=== PATIENT | male | born 1960 | race Caucasian/White ===

== ENCOUNTER 2019-02-27 01:07 | Inpatient (IN) ==
[2019-02-27] MEDS ORDERED: LACTATED RINGERS 1,000 ML IV ONE (01:41)
[2019-02-27 02:29] LABS: Basophils # (Auto) 0.05 K/mcL (0.00-0.30); Basophils % (Auto) 0.6 % (0.0-2.0); Eosinophils # (Auto) 0.26 K/mcL (0.00-0.70); Eosinophils % (Auto) 3.3 % (0.0-7.0); Granulocytes % (Auto) 60.2 % (38.0-78.0); Hematocrit 46.2 % (40.1-51.0); Lymphocytes # (Auto) 2.16 K/mcL (1.50-4.80); Lymphocytes % (Auto) 27.4 % (15.5-49.0); Mean Cell Volume 87.3 fL (80.0-100.0); Mean Corpuscular HGB Conc 34.6 g/dL (31.0-36.0); Mean Platelet Volume 9.7 fL (7.4-10.4); Monocytes # (Auto) 0.67 K/mcL (0.10-0.90); Monocytes % (Auto) 8.5 % (1.0-12.0); Platelet Count 196 K/mcL (140-440); RBC 5.29 M/mcL (4.63-6.08); Red Cell Distribution Width 12.7 % (11.5-14.5); WBC 7.9 K/mcL (4.50-11.00)
[2019-02-27 02:52] LABS: ALT/SGPT 42 U/l (0-40); AST/SGOT 46 U/l (0-37); Albumin 4.8 gm/dL (3.2-5.2); Albumin/Globulin Ratio 2.1 (1.0-2.3); Alcohol,Blood 0.248 gm/dl (<0.010); Alkaline Phosphatase 58 U/L (39-117); Bilirubin,Total 0.3 mg/dL (0.0-1.0); Blood Urea Nitrogen 10 mg/dl (6-20); Calcium 9.4 mg/dl (8.6-10.4); Carbon Dioxide 24 mmol/L (22-30); Chloride 96 mmol/L (96-108); Globulin 2.3 gm/dL (2.2-3.7); Glomerular Filtration Rate 98; Glucose 170 mg/dL (70-105)
[2019-02-27] MEDS: HYDROmorphone 2 MG/ML VIAL IV PRN ×6 (02:52→16:00)
[2019-02-27] MEDS: ONDANSETRON 4 MG/2 ML VIAL IV PRN ×4 (02:53→19:55)
[2019-02-27 04:11] LABS: Appearance,Urine CLEAR; Bilirubin,Urine NEG (NEG); Color,Urine STRAW; Culture Indicated,Urine NO; Glucose,Urine (UA) NEGATIVE (NEG); Ketones,Urine 5/TR mg/dL (NEG); Leukocyte Esterase,Urine NEG /uL (NEG); Nitrate,Urine NEG (NEG); Protein,Urine NEG (NEG); Specific Gravity,Urine 1.009 (1.000-1.035); Urine Blood NEG mg/dL (<0.03); Urobilinogen,Urine NEG (NEG)
--- NOTE | 2019-02-27 04:46 | XRay Report ---
CLINICAL INFORMATION: fall COMPARISON: Abdomen and pelvic CT 11/07/1999.. FINDINGS: Basicervical fracture of the left femoral neck is appreciated with mild impaction. Femoral head and neck fragment are displaced only 2 to 3 mm anteriorly with respect to the trochanteric region. No other osseous abnormality. The SI and hip joints are normal with alignment without arthritic change. Moderate prostate calcification has increased modestly from a [address] IMPRESSION: Minimally impacted and displaced basicervical fracture - left femoral neck Moderate prostate calcification Interpreted and Authenticated by: Mat Calle 02/27/19
--- NOTE | 2019-02-27 04:47 | XRay Report ---
CLINICAL INFORMATION: Preop COMPARISON: 06/22/2017 TECHNIQUE: PA and Lateral views FINDINGS: The heart size, mediastinum and pulmonary vessels are unremarkable. Few small calcified granulomas seen in both lungs as before - no infiltrates. There are no effusions. The bones and soft tissues are within normal limits. IMPRESSION: No acute disease - stable since 06/22/2017. Interpreted and Authenticated by: Mat Calle 02/27/19
[2019-02-27] MEDS: LACTATED RINGERS 1,000 ML IV SCH ×2 (05:05→15:41)
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
[2019-02-27] MEDS ORDERED: IPRATROPIUM/ALBUTEROL 3 ML AMPUL.NEB NEB PRN ×2 (08:21→12:30)
[2019-02-27] MEDS ORDERED: SCOPOLAMINE 1 PATCH PATCH TOPICAL PRN (08:21)
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
[2019-02-27 09:37] LABS: Estimated Average Glucose(eAG) 157 mg/dL; Hemoglobin A1C 7.1 % HGB (4.0-6.0)
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
[2019-02-27] MEDS ORDERED: ALBUTEROL SULFATE 2.5 MG/3 ML NEBULIZER NEB PRN (10:24)
[2019-02-27] MEDS ORDERED: ceFAZolin 1 GM VIAL ONE (11:40)
[2019-02-27] MEDS ORDERED: ceFAZolin 2 GM in DEXTROSE 5% IN WATER 50 ML IV ONE (11:45)
[2019-02-27] MEDS ORDERED: ROCURONIUM 10 MG/ML ML IV ONE (11:46)
[2019-02-27] MEDS ORDERED: PROPOFOL 200 MG/20 ML VIAL IV ONE (11:46)
[2019-02-27] MEDS ORDERED: fentaNYL 100 MCG/2 ML VIAL IV ONE (11:46)
[2019-02-27] MEDS ORDERED: LIDOCAINE HCL/PF 100 MG/5 ML SYRINGE IV ONE (11:46)
[2019-02-27] MEDS ORDERED: ONDANSETRON 4 MG/2 ML VIAL ONE (11:46)
[2019-02-27] MEDS ORDERED: SUCCINYLCHOLINE 20 MG/ML ML IV ONE (11:46)
[2019-02-27] MEDS ORDERED: DEXAMETHASONE 10 MG/ML VIAL ONE (11:46)
[2019-02-27] MEDS ORDERED: MIDAZOLAM 5 MG/5 ML VIAL ONE (11:46)
[2019-02-27] MEDS ORDERED: GENTAMICIN SULFATE 800 MG/20 ML VIAL IR ONE (12:25)
[2019-02-27] MEDS ORDERED: HYDROmorphone 2 MG/ML VIAL IV PRN (12:30)
[2019-02-27] MEDS ORDERED: METHOCARBAMOL 1,000 MG/10 ML VIAL IV PRN (12:30)
[2019-02-27] MEDS ORDERED: fentaNYL 100 MCG/2 ML VIAL IV PRN (12:30)
[2019-02-27] MEDS ORDERED: KETOROLAC 30 MG/ML VIAL IV PRN (12:30)
[2019-02-27] MEDS ORDERED: MAGNESIUM SULFATE 2 GM/50 ML BAG IV ONE (12:30)
[2019-02-27] MEDS ORDERED: VANCOMYCIN 1 GM VIAL TOPICAL SCH (12:30)
[2019-02-27] MEDS ORDERED: NALOXONE HCL 0.4 MG/ML VIAL IV PRN (12:30)
[2019-02-27] MEDS ORDERED: LACTATED RINGERS 1,000 ML IV SCH (12:30)
[2019-02-27] MEDS ORDERED: diphenhydrAMINE 50 MG/ML VIAL IV PRN (12:30)
[2019-02-27] MEDS ORDERED: ePHEDrine 50 MG/ML AMPUL IV PRN (12:30)
[2019-02-27] MEDS ORDERED: FLUMAZENIL 0.1 MG/ML ML IV PRN (12:30)
[2019-02-27] MEDS ORDERED: MEPERIDINE 25 MG/ML SYRINGE IV PRN (12:30)
[2019-02-27] MEDS ORDERED: ATROPINE SULFATE 0.4 MG/ML VIAL IV PRN (12:30)
--- NOTE | 2019-02-27 12:39 | Cat Scan Report ---
CLINICAL INFORMATION: Trauma COMPARISON: None. TECHNIQUE: 625mm helical slices were obtained from the mid L4 through the subtrochanteric regions. Following reconstruction, 2.5 mm sagittal, coronal and axial reformations were processed. The exam was reviewed in bone and soft tissue windows. The exam was performed using radiation dose optimization techniques including, but not limited to, automated exposure control, adjustment of mA and/or kV according to patient size and use of iterative reconstruction technique. FINDINGS: Mildly comminuted oblique fracture of the left femoral neck is appreciated. There is mild impaction. The femoral diaphysis is displaced 5 mm superiorly and anteriorly with respect to the femoral head and neck. Mild soft tissue swelling noted. Left hip is normal in width and alignment. Soft tissues are significant for moderate prostate calcification. Bladder is normal. Visualized small and large bowel are unremarkable. There is no free fluid or free air. IMPRESSION: Obliquely, minimally angulated and displaced acute fracture of the left femoral neck. Interpreted and Authenticated by: Mat Calle 02/27/19
[2019-02-27] MEDS ORDERED: VANCOMYCIN 1 GM VIAL TOPICAL ONE (12:45)
[2019-02-27] MEDS: METOPROLOL TARTRATE 5 MG/5 ML VIAL IV PRN ×2 (13:31→13:45)
[2019-02-27] MEDS ORDERED: ACETAMINOPHEN 1,000 MG/100 ML BOTTLE IV ONE (13:36)
--- NOTE | 2019-02-27 13:36 | Brief Operative Note ---
Date of procedure: 02/27/19 Pre-op diagnosis: L hip fracture Post-op diagnosis: same Procedure: hemiarthroplasy Grafts/Implants: Yes (depuy actis) Anesthesia: GETA Complications: none Surgeon: Andrey Rajan Hand Silvering Supervisor: Franklin Simon Estimated blood loss (cc): 100 Specimens Removed/Pathology: none sent Condition: stable Disposition: PACU
[2019-02-27] MEDS ORDERED: MAGNESIUM HYDROXIDE 30 ML ORAL.SUSP PO PRN (13:37)
[2019-02-27] MEDS ORDERED: POLYETHYLENE GLYCOL 3350 17 GM PACKET PO PRN (13:37)
[2019-02-27] MEDS ORDERED: TRANEXAMIC ACID 1,000 MG/10 ML VIAL IV ONE (13:37)
[2019-02-27] MEDS ORDERED: BISACODYL 10 MG SUPP.RECT PR PRN (13:37)
[2019-02-27] MEDS ORDERED: BENZOCAINE/MENTHOL 1 LOZENGE PO PRN (13:37)
[2019-02-27] MEDS ORDERED: FLEETS ADULT ENEMA PR PRN (13:37)
[2019-02-27] MEDS ORDERED: ONDANSETRON 4 MG/2 ML VIAL IV PRN (13:37)
[2019-02-27] MEDS: 0.9 % SODIUM CHLORIDE 10 ML SYRINGE IV SCH ×2 (15:38→21:56)
[2019-02-27] MEDS: 0.9 % SODIUM CHLORIDE 1,000 ML IV SCH (16:05)
[2019-02-27] MEDS: oxyCODONE/APAP 5/325MG TABLET PO PRN ×2 (17:53→22:12)
--- NOTE | 2019-02-27 18:04 | XRay Report ---
CLINICAL INFORMATION: Post-Op Total Hip COMPARISON: Preoperative films 02/27/2019 0129 hours FINDINGS: Left hip hemiarthroplasty is anatomically aligned. No osseous abnormality. Both SI joints are normal. IMPRESSION: Left hip hemiarthroplasty in anatomic alignment. Negative Interpreted and Authenticated by: Mat Calle 02/27/19
[2019-02-27] MEDS: ceFAZolin 1 GM VIAL IV SCH (19:35)
[2019-02-27] MEDS: DOCUSATE SODIUM 100 MG CAPSULE PO SCH (21:55)
[2019-02-27] MEDS: ASPIRIN 325 MG ENTERIC COATED TABLET PO SCH (21:55)
[2019-02-27] MEDS: SENNOSIDES 1 TABLET PO SCH (21:55)
[2019-02-27] MEDS: LOSARTAN 50 MG TABLET PO SCH (21:55)
[2019-02-27] MEDS: LORazepam 1 MG TABLET PO PRN (23:10)
[2019-02-28] MEDS: 0.9 % SODIUM CHLORIDE 1,000 ML IV SCH ×3 (01:23→19:28)
[2019-02-28] MEDS: oxyCODONE/APAP 5/325MG TABLET PO PRN ×5 (03:11→18:47)
[2019-02-28] MEDS: ceFAZolin 1 GM VIAL IV SCH (03:12)
[2019-02-28] MEDS: 0.9 % SODIUM CHLORIDE 10 ML SYRINGE IV SCH ×4 (04:03→22:16)
--- NOTE | 2019-02-28 06:17 | Orthopedic Progress Note ---
Subjective Patient information: Note initiated : 02/28/19 at 6:15 am Service Date, if different from initiated Date: [] Patient: Mat Lucio 58 y/o M admitted on 02/27/19 for fall from standing position left hip pain. POD#1 s/p Left hip hemiarthroplasty with Dr. Rajan. Admits to pain in the left hip and some dizziness and nausea this AM. His pain is managed. Denies SOB, CP, V. No new complaints overnight. Chief Complaint: LEFT HIP PAIN Pertinent ROS: negative except per HPI. Objective Vital signs: Vital Signs Temp Pulse Resp BP BP Pulse Ox 02/28/19 03:15 97.8 F 96 H 12 132/88 92 02/27/19 23:05 98.6 F 90 12 141/91 93 02/27/19 18:58 97.3 F 90 12 140/83 95 02/27/19 18:00 82 02/27/19 16:00 96.8 F L 75 137/90 91 02/27/19 15:30 80 131/84 93 02/27/19 15:15 83 134/81 93 02/27/19 15:00 76 135/82 93 02/27/19 14:45 79 138/89 91 02/27/19 14:30 84 12 144/97 92 02/27/19 14:17 98.0 F 84 12 149/90 95 02/27/19 13:58 91 02/27/19 13:50 89 11 L 161/94 96 02/27/19 13:35 94 H 15 172/110 97 02/27/19 13:30 109 H 14 177/113 97 02/27/19 13:25 107 H 16 184/128 96 02/27/19 13:22 98.2 F 96 H 16 179/116 96 02/27/19 08:00 98.0 F 90 20 118/79 91 02/27/19 07:34 102 H 20 95 Intake and Output 02/27/19 02/28/19 02/28/19 21:59 05:59 13:59 Intake Total 100 1780 Output Total 1000 600 Balance -900 1180 Intake: IV 100 930 Sodium Chloride 0.9% 1,000 ml @ 930 100 mls/hr IV .Q10H [facility] Rx#: [id number] Oral 850 Output: Void Amount 1000 600 Other: Urine Appearance Clear Urine Color Dark Yellow Light Glendy Urine Odor Normal Strong Weight 265 lb 8 oz Intake & Output: Intake & Output 02/27/19 02/28/19 02/28/19 21:59 05:59 13:59 Intake Total 100 1780 Output Total 1000 600 Balance -900 1180 Weight 265 lb 8 oz Intake: IV 100 930 Sodium Chloride 0.9% 1,000 ml @ 930 100 mls/hr IV .Q10H [facility] Rx#: [id number] Oral 850 Output: Void Amount 1000 600 Other: Urine Appearance Clear Urine Color Dark Yellow Light Glendy Urine Odor Normal Strong Dressing: Yes clean, Yes dry, Yes intact Weight bearing status: as tolerated Neurological exam IM: Yes alert, Yes oriented X3, Yes neurovascular intact Extremities exam IM: No calf tenderness, Yes normal capillary refill, Yes normal inspection, No Cass's sign, Yes Foot pink and warm, Yes neurovascular intact - Labs CBC & BMP: 02/27/19 02:00 02/27/19 02:00 Labs: Orthopedic Labs 02/28/19 02/27/19 06:13 08:47 PT Pending 13.0 INR Pending 1.0 02/28/19 02/27/19 06:13 02:00 Hgb Pending 16.0 Hct Pending 46.2 Assessment and Plan (1) Fracture of left hip Status: Acute - Narrative A/P Narrative: Pt is a 58 y/o M admitted on 02/27/19 for fall from standing position left hip pain. POD#1 s/p Left hip hemiarthroplasty with Dr. Rajan. -mobilize with PT/OT: WBAT with LLE. work on quad sets, leg lifts. Continue posterior hip precautions. -continue diet -continue pain medications -dressing change to silver dressing POD#2 if no drainage. -prophy: SCDs, IS, aspirin. -dispo: likely home tmrw.
--- NOTE | 2019-02-28 06:20 | Discharge Summary ---
Providers - Providers Patient information: Note initiated : 02/28/19 at 6:20 am Service Date, if different from initiated Date: [] Patient: Mat Lucio 58 y/o M admitted on 02/27/19 for fall from standing position left hip pain. Chief Complaint: [] Date of admission: 02/27/19 Discharge date: 03/01/19 Hospitalization Discharge diagnosis: left hip fracture Exam - Exam Incision healing: Yes Incision draining: No Incision red: No Clean and dry: Yes Weight bearing status: as tolerated Ortho Discharge Plan - General - Patient Instructions Diet: Regular Diet Activity: activity as tolerated Dressing Care: May shower in 2 days, Cover dressing in shower, Aquacel Ag - leave on for 5 days - Problem Maintenance (1) Fracture of left hip Status: Acute - Follow Up Plan Follow Up Appointments: Braeden Posadas PA-C [Primary Care Provider] - Florencio Caro PA-C [Physician Real Estate Intern] - Disposition: Home, Self-Care Prognosis: Good Rehab Potential: Good Overall status at discharge: patient is progressing back to baseline - Orders For Discharge Prescriptions: Aspirin 325 mg PO QAM #14 tablet Docusate Sodium 100 mg PO QDAY #30 cap Transmission Status: Pending to [facility] 2005 Hydrocodone/APAP 7.5/325Mg [Hope 7.5-325Mg] 1 - 2 tab PO Q4-6HP PRN #60 tab PRN Reason: Pain Prescription Printed Additional Discharge Orders: Physical Therapy at Discharge - SAMANTHA Location: None Selected Toilet Riser Discharge Order Location: None Selected Walker Location: None Selected Pending Studies Resuscitation Status Full Code Diet Regular Diet Start MonFeb 27 1719 Aspirin (Ecotrin) 325 mg PO BID [facility] Last Admin: 02/27/19 21:55 Dose: 325 mg Documented by: ELPIDIO Docusate Sodium (Colace) 100 mg PO BID [facility] Last Admin: 02/27/19 21:55 Dose: 100 mg Documented by: ELPIDIO Hydromorphone HCl (Dilaudid) 1 mg IV Q1HP PRN; Protocol PRN Reason: Per Pain Protocol Last Admin: 02/27/19 16:00 Dose: 1 mg Documented by: [email or web address] Admin: 02/27/19 10:35 Dose: 1 mg Documented by: [email or web address] Admin: 02/27/19 08:26 Dose: 1 mg Documented by: [email or web address] Admin: 02/27/19 05:36 Dose: 1 mg Documented by: Admin: 02/27/19 04:25 Dose: 1 mg Documented by: [email or web address] Admin: 02/27/19 02:52 Dose: 1 mg Documented by: [email or web address] Sodium Chloride (Sodium Chloride 0.9%) 1,000 mls @ 100 mls/hr IV .Q10H [facility] Last Admin: 02/28/19 01:23 Dose: 100 mls/hr Documented by: Infusion: 02/28/19 01:23 Dose: 100 mls/hr Documented by: Admin: 02/27/19 16:05 Dose: 100 mls/hr Documented by: CARRIE Lorazepam (Ativan) 1 mg PO Q6HP PRN PRN Reason: Anxiety Last Admin: 02/27/19 23:10 Dose: 1 mg Documented by: ELPIIDO Losartan Potassium (Cozaar) 50 mg PO BID [facility] Last Admin: 02/27/19 21:55 Dose: 50 mg Documented by: ELPIDIO Ondansetron HCl (Zofran) 4 mg IV Q4HP PRN PRN Reason: Nausea And Vomiting Last Admin: 02/27/19 19:55 Dose: 4 mg Documented by: Admin: 02/27/19 15:59 Dose: 4 mg Documented by: ASMAlicia Admin: 02/27/19 08:33 Dose: 4 mg Documented by: [email or web address] Admin: 02/27/19 02:53 Dose: 4 mg Documented by: [email or web address] Oxycodone/Acetaminophen (Percocet 5-325 Mg) 0 tab PO Q4HP PRN PRN Reason: PAIN LEVEL 3-6 Last Admin: 02/28/19 03:11 Dose: 2 tab Documented by: Admin: 02/27/19 22:12 Dose: 2 tab Documented by: Admin: 02/27/19 17:53 Dose: 2 tab Documented by: ASMAlicia Senna (Senokot) 2 tab PO HS [facility] Last Admin: 02/27/19 21:55 Dose: 2 tab Documented by: ELPIDIO Sodium Chloride (Saline Flush) 10 ml IV Q8 [facility] Last Admin: 02/28/19 04:03 Dose: Not Given Documented by: Admin: 02/27/19 21:56 Dose: Not Given Documented by: Admin: 02/27/19 15:38 Dose: Not Given Documented by: [email or web address] Shift Summary 02/28/19 02:37 Shift Summary by Zee Martínez Addendum entered by Zee Martínez, RCarlos EduardoNCarlos Eduardo 02/28/19 04:14: Percocet 5 mg (2 tabs) given again at 0311. Original Note: Pt is A&Ox4. VSS. CPAP at night. Voiding well. Pt has not been out of bed yet, but have encouraged pt to ambulate this AM w/PT. Abductor wedge in place. Last CIWA was 3. Pt got PRN Ativan 1 mg PO x1 for anxiety. Percocet 5 mg (2 tabs) given x1 for hip pain. Dressing to left hip CDI. 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 Pt got Zofran x1 for nausea. IV to left hand w/NS @ 100 ml/hr. Will update with verbal report. Initialized on 02/28/19 02:37 - END OF NOTE
[2019-02-28] MEDS: OMEPRAZOLE 20 MG CAPSULE PO SCH (07:01)
[2019-02-28] MEDS: LORazepam 1 MG TABLET PO PRN ×2 (07:02→21:45)
[2019-02-28] MEDS: ONDANSETRON 4 MG/2 ML VIAL IV PRN (07:02)
[2019-02-28 07:15] LABS: Hematocrit 39.2 % (40.1-51.0); Hemoglobin 13.6 g/dL (13.7-17.5)
[2019-02-28 07:24] LABS: Prothrombin Time 13.4 sec (11.9-14.5)
[2019-02-28 07:31] LABS: Blood Urea Nitrogen 18 mg/dl (6-20); Calcium 8.5 mg/dl (8.6-10.4); Carbon Dioxide 23 mmol/L (22-30); Chloride 98 mmol/L (96-108); Glomerular Filtration Rate 93; Glucose 154 mg/dL (70-105)
--- NOTE | 2019-02-28 08:50 | Operative Note ---
DATE OF OPERATION: 02/27/2019 PREOPERATIVE DIAGNOSIS: Left hip fracture, transcervical/subcapital femoral neck. POSTOPERATIVE DIAGNOSIS: Left hip fracture, transcervical/subcapital femoral neck. OPERATION PROPOSED: Left hip hemiarthroplasty. OPERATION PERFORMED: Left hip hemiarthroplasty. OPERATING SURGEON: Jacob Rajan M.D. POULTRY HATCHERY LABORER: Franklin Simon PA-C. This provider's expertise and technical skill were required throughout the case. The PA assisted with preoperative coordination, intraoperative retraction, wound closure, dressing and splint application, as well as postoperative documentation and care coordination. INDICATIONS: This is a 58-year-old gentleman who has a significantly displaced femoral neck fracture. It is displaced to the point where it would almost certainly develop avascular necrosis. We have elected to proceed with a hemiarthroplasty. OPERATION IN DETAIL: Informed consent was obtained. The patient taken to the operating room and provided appropriate anesthetic and prophylactic antibiotics. He was carefully positioned. A standard posterior approach to the hip was performed. I dissected through the gluteal musculature and iliotibial band. I cut and released short external rotators. The hip capsule was cut and T'd. I then performed a femoral neck cut and removed this napkin ring of bone. I then used a corkscrew to engage the femoral head. This was removed. I checked the acetabulum for any loose fragments of bone. I obtained hemostasis. I then sequentially broached and impacted and then calcar reamed off of the size 5 broach. A size 6 Actis stem was impacted. I used a size 53 head ball with a 1.5 collar. The wounds were irrigated extensively and I closed with a #1 Ti-Cron in the hip capsule. A #1 Vicryl was used in the iliotibial band as was a #1 Stratafix, 2-0 inverted deep dermal, and chuck in the skin. The procedure was tolerated well. No complications. Estimated blood loss 100 mL. GDD:dom Job ID: [id number] Doc ID: [id number] Andrey Rajan MD
[2019-02-28] MEDS: amLODIPine 10 MG TABLET PO SCH (09:35)
[2019-02-28] MEDS: ALLOPURINOL 100 MG TABLET PO SCH (09:35)
[2019-02-28] MEDS: LOSARTAN 50 MG TABLET PO SCH ×2 (09:35→19:12)
[2019-02-28] MEDS: DOCUSATE SODIUM 100 MG CAPSULE PO SCH ×2 (09:35→19:12)
[2019-02-28] MEDS: ASPIRIN 325 MG ENTERIC COATED TABLET PO SCH ×2 (09:35→19:12)
[2019-02-28] MEDS: METHOCARBAMOL 750 MG TABLET PO PRN ×2 (09:41→23:31)
[2019-02-28] MEDS: INSULIN LISPRO 1 UNIT/0.01 ML UNIT SQ SCH ×3 (11:08→19:18)
--- NOTE | 2019-02-28 13:02 | Internal Med Progress Note ---
Medical - PN: Subj Patient information: Note initiated : 02/28/19 at 12:59 pm Service Date, if different from initiated Date: [] Patient: Mat Lucio 58 y/o M admitted on 02/27/19 for fall from standing position left hip pain. Chief Complaint: [] Interval history: 02/27 Mr. Lucio is a 58 year old M with a history of COPD, diet-controlled diabetes, sleep apnea on CPAP, chronic back pain with neuropathy with history of spinal stenosis who presents after ground-level fall. Patient is were at a concert, using the bathroom, slipped on tile and fell onto his left hip. He got up and immediately fell again as he is unable to bear weight. He is brought to the ED, was found to have a left femoral neck fracture. Other significant findings include a blood alcohol level of 0.248. Patient states that he drinks on a nightly basis, 4-6 drinks. He is stopped alcohol consumption for several weeks to months at a time without any withdrawal symptoms. At the time of my interview, the patient is awake, alert, somewhat uncomfortable from hip pain. No history of coronary disease, no anginal symptoms. He is able to walk generally without symptoms, occasionally having to use his rescue inhaler for dyspnea. He has underlying COPD and uses maintenance and rescue inhalers. No recent wheezing, dyspnea, cough or sputum production. No history of heart failure. He is currently complaining of some nausea due to pain medications. Otherwise denies headache, vision changes, sore throat, fever or chills, abdominal pain, diarrhea, dysuria, focal weakness. He has chronic back pain, is a spinal stimulator in place which has improved his symptoms. No bleeding problems. No easy bruising. Has a history of diabetes, generally controlled with diet. No polyuria or polydipsia. 02/28 Patient postop day #1 after hemiarthroplasty. Doing well this morning. Has been working with PT. This concerned his spinal stimulator leads. Been damaged during his fall, he'll follow up with Dr. Mcneal. - Constitutional Vitals: Vital Signs Temp Pulse Resp BP Pulse Ox 98.1 F 85 12 134/89 94 02/28/19 08:00 02/28/19 11:00 02/28/19 08:00 02/28/19 08:00 02/28/19 08:00 Period Temp Pulse Resp BP Sys/Brito Pulse Ox Last 24 Hr 96.8 F-98.6 F 75-109 11-16 131-184/81-128 91-97 Intake and Output 02/27/19 02/28/19 02/28/19 21:59 05:59 13:59 Intake Total 100 1780 800 Output Total 1000 600 300 Balance -900 1180 500 Weight 265 lb 8 oz Intake & Output: Intake & Output 02/27/19 02/28/19 02/28/19 21:59 05:59 13:59 Intake Total 100 1780 800 Output Total 1000 600 300 Balance -900 1180 500 Weight 265 lb 8 oz Intake: IV 100 930 Sodium Chloride 0.9% 1,000 ml @ 930 100 mls/hr IV .Q10H [facility] Rx#: [id number] Oral 850 800 Output: Void Amount 1000 600 300 Other: Urine Appearance Clear Urine Color Dark Yellow Light Glendy Urine Odor Normal Strong Exam: General: Lying in bed no acute distress. Chest: Clear. Cardiovascular: Regular, no Abdomen: Obese, soft. Extremities: Left lower extremity warm and perfused. Surgical dressings intact. Neuro: Oriented 3, nonfocal Medical - PN: Obj Da - Labs CBC & Chem 7: 02/28/19 06:13 02/28/19 06:13 Labs: Abnormal Lab Results 02/28/19 02/28/19 02/27/19 06:13 06:13 08:47 Hgb 13.6 L Hct 39.2 L Anion Gap Glucose 154 H Hemoglobin A1c 7.1 H Calcium 8.5 L AST ALT Urine Ketones Ethyl Alcohol 02/27/19 02/27/19 02/27/19 03:24 02:00 02:00 Hgb Hct Anion Gap 17.0 H Glucose 170 H Hemoglobin A1c Calcium AST 46 H ALT 42 H Urine Ketones 5/tr A Ethyl Alcohol 0.248 H Meds: Medications Albuterol Sulfate (Ventolin) 2.5 mg NEB Q2HP PRN PRN Reason: Shortness Of Breath Allopurinol (Zyloprim) 100 mg PO QDAY [facility] Last Admin: 02/28/19 09:35 Dose: 100 mg Documented by: Amlodipine Besylate (Norvasc) 10 mg PO QDAY [facility] Last Admin: 02/28/19 09:35 Dose: Not Given Documented by: Aspirin (Ecotrin) 325 mg PO BID [facility] Last Admin: 02/28/19 09:35 Dose: 325 mg Documented by: Bisacodyl (Dulcolax) 10 mg DE Q2-3DAYS PRN PRN Reason: Constipation Diagnostic Test (Pha) (Accu-Chek) 1 each FS [facility] Last Admin: 02/28/19 11:08 Dose: 1 each Documented by: Docusate Sodium (Colace) 100 mg PO BID [facility] Last Admin: 02/28/19 09:35 Dose: 100 mg Documented by: Hydromorphone HCl (Dilaudid) 1 mg IV Q1HP PRN; Protocol PRN Reason: Per Pain Protocol Last Admin: 02/27/19 16:00 Dose: 1 mg Documented by: Sodium Chloride (Sodium Chloride 0.9%) 1,000 mls @ 100 mls/hr IV .Q10H [facility] Last Admin: 02/28/19 09:43 Dose: Not Given Documented by: Insulin Human Lispro (Humalog) 0 unit SQ [facility]; Protocol Last Admin: 02/28/19 11:08 Dose: Not Given Documented by: Lorazepam (Ativan) 1 mg PO Q6HP PRN PRN Reason: Anxiety Last Admin: 02/28/19 07:02 Dose: 1 mg Documented by: Losartan Potassium (Cozaar) 50 mg PO BID [facility] Last Admin: 02/28/19 09:35 Dose: 50 mg Documented by: Magnesium Hydroxide (Milk Of Magnesia) 30 ml PO BIDP PRN PRN Reason: Constipation Methocarbamol (Robaxin) 750 mg PO Q6HP PRN PRN Reason: Muscle Spasm Last Admin: 02/28/19 09:41 Dose: 750 mg Documented by: [facility] Admin: 02/28/19 07:01 Dose: 20 mg Documented by: Ondansetron HCl (Zofran) 4 mg IV Q4HP PRN PRN Reason: Nausea And Vomiting Last Admin: 02/28/19 07:02 Dose: 4 mg Documented by: Ondansetron HCl (Zofran) 4 mg IV Q4HP PRN PRN Reason: Nausea And Vomiting Oxycodone/Acetaminophen (Percocet 5-325 Mg) 0 tab PO Q4HP PRN PRN Reason: PAIN LEVEL 3-6 Last Admin: 02/28/19 11:07 Dose: 2 tab Documented by: Trelechristian Ellipta (Inhaler) 1 dose INH QDAY [facility] Last Admin: 02/28/19 09:36 Dose: 1 dose Documented by: Polyethylene Glycol (Miralax) 17 gm PO DAILYP PRN PRN Reason: Constipation Senna (Senokot) 2 tab PO HS [facility] Last Admin: 02/27/19 21:55 Dose: 2 tab Documented by: Sodium Biphosphate/Sodium Phosphate (Fleets Adult) 1 dose DE Q3-4DAYS PRN PRN Reason: Constipation Sodium Chloride (Saline Flush) 10 ml IV Q8 [facility] Last Admin: 02/28/19 04:03 Dose: Not Given Documented by: Throat Lozenges (Cepacol) 1 lozenge PO PRN PRN PRN Reason: Sore Throat Medical - PN: A/P - Time Spent With Patient Total time spent is greater than 50% in coordination of care (as documented) at patient's floor/unit and/or counseling patient: 25 - 35 minutes - Narrative A/P Narrative: 58-year-old male with ground-level fall and left femoral neck fracture. Left femoral neck fracture. Secondary to ground-level fall in the setting of alcohol intoxication. He is been seen by Dr. Rajan, now postop day 1. Left hemiarthroplasty. Post-op management per orthopedics Pain control PT COPD. Currently quiesced sent without evidence of exacerbation. Continue home maintenance inhaler As needed albuterol Obstructive sleep apnea on CPAP at home Using home CPAP Alcohol use/abuse. Patient's intoxicated presentation. States he has 4-6 drink s a night. Denies any history of alcohol withdrawal symptoms when he stops drinking. Monitor, low threshold to institute CIWA Type 2 diabetes. Diet controlled. Hemoglobin A1c 7.1% today. Controlled carbohydrate diet Sliding scale insulin Hypercholesterolemia Hypertension Continue home regimens Medical - PN: Qual - VTE Deep Vein Thrombosis/Pulmonary Embolism Present on Admission: No
[2019-02-28] MEDS: KETOROLAC 15 MG/ML VIAL IV PRN ×3 (14:04→23:32)
[2019-02-28] MEDS: SENNOSIDES 1 TABLET PO SCH (19:12)
[2019-03-01] MEDS: oxyCODONE/APAP 5/325MG TABLET PO PRN ×4 (00:47→14:06)
[2019-03-01] MEDS: ONDANSETRON 4 MG/2 ML VIAL IV PRN (04:27)
[2019-03-01] MEDS: 0.9 % SODIUM CHLORIDE 10 ML SYRINGE IV SCH ×2 (04:28→17:28)
[2019-03-01] MEDS: 0.9 % SODIUM CHLORIDE 1,000 ML IV SCH (05:56)
[2019-03-01 07:36] LABS: Hematocrit 39.5 % (40.1-51.0); Hemoglobin 13.2 g/dL (13.7-17.5)
[2019-03-01] MEDS: METHOCARBAMOL 750 MG TABLET PO PRN (07:40)
[2019-03-01] MEDS: LORazepam 1 MG TABLET PO PRN (07:40)
[2019-03-01] MEDS: KETOROLAC 15 MG/ML VIAL IV PRN (07:40)
[2019-03-01] MEDS: ALLOPURINOL 100 MG TABLET PO SCH (07:50)
[2019-03-01] MEDS: ASPIRIN 325 MG ENTERIC COATED TABLET PO SCH (07:50)
[2019-03-01] MEDS: LOSARTAN 50 MG TABLET PO SCH (07:51)
[2019-03-01] MEDS: OMEPRAZOLE 20 MG CAPSULE PO SCH (07:51)
[2019-03-01] MEDS: DOCUSATE SODIUM 100 MG CAPSULE PO SCH (07:51)
[2019-03-01] MEDS: amLODIPine 10 MG TABLET PO SCH (07:52)
--- NOTE | 2019-03-01 08:04 | Discharge Summary ---
Medical - DS: Prov Patient information: Note initiated : 03/01/19 at 8:02 am Service Date, if different from initiated Date: [] Patient: Mat Lucoi 58 y/o M admitted on 02/27/19 for fall from standing position left hip pain. Chief Complaint: [] Date of admission: 02/27/19 04:38 Discharge date: 03/01/19 Primary care physician: Braeden Posadas Consults: 02/27/19 07:58 Consult to Physician [CONS] Routine Comment: Consulting Provider: Andrey Rajan Reason For Exam: Physician to Consult 02/28/19 07:53 Consult to Physician [CONS] Routine Comment: Consulting Provider: Debby Lambert Reason For Exam: Physician to Consult Medical - DS: Meds - Discharge Medications Prescriptions: Aspirin 325 mg PO QAM #14 tab Docusate Sodium 100 mg PO QDAY #30 cap Transmission Status: Received by [facility] 2005 Hydrocodone/APAP 7.5/325Mg [[place] 7.5-325Mg] 1 - 2 tab PO Q4-6HP PRN #60 tab PRN Reason: Pain Prescription Printed Active and Home Medications: Home Medications amlodipine 10 mg tablet 10 mg PO QDAY #90 tab 12/12/17 [Rx Confirmed 02/27/19 Last Taken Unknown] meclizine 25 mg tablet 25 mg PO TIDP PRN #30 tab 01/02/18 [Rx Confirmed 02/27/19 Last Taken Unknown] ondansetron 4 mg disintegrating tablet 4 mg PO Q4-6HP PRN #10 tab 01/02/18 [Rx Confirmed 02/27/19 Last Taken Unknown] losartan 50 mg tablet 50 mg PO BID #180 tab 02/07/18 [Rx Confirmed 02/27/19 Last Taken 02/26/19] carisoprodol 350 mg tablet See Rx Instructions PO QDAY PRN #30 tab 05/30/18 [Rx Confirmed 02/27/19 Last Taken 01/28/19] allopurinol 100 mg tablet 100 mg PO QDAY #90 tab 08/14/18 [Rx Confirmed 02/27/19 Last Taken 02/26/19] omeprazole 20 mg capsule,delayed release 20 mg PO QDAY 90 Days #90 cap 09/18/18 [Rx Confirmed 02/27/19 Last Taken 02/26/19] fluticasone fur. 100 mcg-umeclid 62.5 mcg-vilant 25 mcg inhalat.powder 1 inh INHALATION QDAY 90 Days #180 each 12/19/18 [Rx Confirmed 02/27/19 Last Taken 02/26/19] Albuterol Sulfate [Proventil Hfa] 2 puff INHALATION Q4HP PRN 02/27/19 [History Confirmed 02/27/19 Last Taken Unknown] Sildenafil Citrate [Viagra] 100 mg PO PRN PRN 02/27/19 [History Confirmed 02/27/19 Last Taken 02/20/19] lorazepam 1 mg tablet 1 mg PO DAILYP PRN 02/27/19 [History Confirmed 02/27/19 Last Taken 02/26/19] Aspirin 325 mg PO QAM #14 tab 02/28/19 [Rx Last Taken Unknown] Docusate Sodium 100 mg PO QDAY #30 cap 02/28/19 [Rx Last Taken Unknown] Hydrocodone/APAP 7.5/325Mg [[place] 7.5-325Mg] 1 - 2 tab PO Q4-6HP PRN #60 tab 02/28/19 [Rx Last Taken Unknown] Medical - DS: Hosp Hospital Course: 02/27 Mr. Lucio is a 58 year old M with a history of COPD, diet-controlled diabetes, sleep apnea on CPAP, chronic back pain with neuropathy with history of spinal stenosis who presents after ground-level fall. Patient is were at a concert, using the bathroom, slipped on tile and fell onto his left hip. He got up and immediately fell again as he is unable to bear weight. He is brought to the ED, was found to have a left femoral neck fracture. Other significant findings include a blood alcohol level of 0.248. Patient states that he drinks on a nightly basis, 4-6 drinks. He is stopped alcohol consumption for several weeks to months at a time without any withdrawal symptoms. At the time of my interview, the patient is awake, alert, somewhat uncomfortable from hip pain. No history of coronary disease, no anginal symptoms. He is able to walk generally without symptoms, occasionally having to use his rescue inhaler for dyspnea. He has underlying COPD and uses maintenance and rescue inhalers. No recent wheezing, dyspnea, cough or sputum production. No history of heart failure. He is currently complaining of some nausea due to pain medications. Otherwise denies headache, vision changes, sore throat, fever or chills, abdominal pain, diarrhea, dysuria, focal weakness. He has chronic back pain, is a spinal stimulator in place which has improved his symptoms. No bleeding problems. No easy bruising. Has a history of diabetes, generally controlled with diet. No polyuria or polydipsia. 02/28 Patient postop day #1 after hemiarthroplasty. Doing well this morning. Has been working with PT. This concerned his spinal stimulator leads. Been damaged during his fall, he'll follow up with Dr. Mcneal. 03/01 No overnight events. Patient stable for discharge. Discharge diagnosis: Left femoral neck fracture COPD obstructive sleep apnea alcohol abuse diabe - Time Spent with Patient Total time spent providing and/or coordinating discharge services: Greater than 30 minutes Medical - DS: Exam - Constitutional Vitals: Vital Signs Temp Pulse Resp BP BP Pulse Ox 03/01/19 07:03 98.4 F 80 18 142/92 94 03/01/19 04:49 98.8 F 89 14 136/91 92 02/28/19 23:40 98.8 F 84 20 144/94 94 02/28/19 19:23 98.0 F 92 H 12 138/91 92 02/28/19 16:00 98.2 F 94 H 20 138/86 97 02/28/19 15:00 82 02/28/19 12:00 98.4 F 85 12 130/81 94 02/28/19 11:00 85 Intake and Output 02/28/19 03/01/19 03/01/19 21:59 05:59 13:59 Intake Total 1240 510 Output Total 300 Balance 1240 210 Intake: IV 1000 Sodium Chloride 0.9% 1,000 ml @ 1000 100 mls/hr IV .Q10H LANCE Rx#: [id number] Oral 240 510 Output: Void Amount 300 Other: Meal Breakfast Percent of Meal Consumed 75% Urine Color Light Glendy # Voids 1 Weight 116.845 kg Medical - DS: Data Labs on day of discharge: Labs from last 24 hours 03/01/19 03/01/19 06:27 06:27 Hgb 13.2 L Hct 39.5 L PT Pending INR Pending Medical - DS: A/P - Patient/Caregiver Discharge Instructions Activity: as per physical therapy Diet: Regular Diet Additional Instructions: Discharge Instructions: Do the exercises at home that physical therapy gave you. Weight bearing as tolerated. Wear comfortable clothing for physical therapy. You are scheduled to start physical therapy at [facility] ([phone]) on Mar.04 at 10:00 am, please arrive 15 minutes early for paperwork. Take your prescription, photo ID, insurance cards, and current medication list with you to your first physical therapy appointment. You have the Aquacel Ag dressing, leave in place for 7 days then remove. If dressing becomes soiled (turns black), remove and use gauze 4x4 dressing and antimicrobial silver ointment ([id number]) and change daily. You may shower with dressing on, pat dry after shower. You may start showering on post op day #2. To avoid constipation while taking any narcotic pain medication, take an over the counter stool softener/laxative. Use your Cryocuff or ice packs as directed, on for 20 minutes at a time, throughout the day. Ice and elevation will help with pain and swelling. If you have any questions or concerns call your orthopedic surgeon before going to the emergency room. [facility] has a pupil personnel worker physician 24 hours per day/7 days per week and can be reached at [phone]. Call for fevers above 100.5 or pain not controlled by medication. Your prescriptions are with your discharge information. Some medications were electronically transmitted to your pharmacy of choice. Take Aspirin as prescribed to prevent blood clots (see medication list). Prescriptions: Aspirin 325 mg PO QAM #14 tab Docusate Sodium 100 mg PO QDAY #30 cap Transmission Status: Received by [facility] 2005 Hydrocodone/APAP 7.5/325Mg [[place] 7.5-325Mg] 1 - 2 tab PO Q4-6HP PRN #60 tab PRN Reason: Pain Prescription Printed Other Amb Orders: Physical Therapy at Discharge - [facility] Location: None Selected Toilet Riser Discharge Order Location: None Selected Walker Location: None Selected - Follow up Plan Follow up with: Braeden Posadas PA-C [Primary Care Provider] - Florencio Caro PA-C [Physician Insole And Outsole Splitter] - 03/12/19 10:40 am Disposition: Home, Self-Care Care Plan Goals: This discharge packet is provided to you to help keep you informed about your care. We want to ensure you get everything you need when you go home. You will also be receiving a call from us in a few days to follow up with you and see how you are doing since your discharge. This gives us a chance to listen to any concerns you maybe experiencing since you were discharged or any additional needs you may have, as well as providing us feedback on your care experience. We strive to always provide excellent care and thank you for your feedback and for choosing [facility]. Prognosis: Fair Rehab Potential: Fair Overall status at discharge: patient is progressing back to baseline Medical - DS: Qual - VTE Deep Vein Thrombosis/Pulmonary Embolism Present on Admission: No
[2019-03-01] MEDS: INSULIN LISPRO 1 UNIT/0.01 ML UNIT SQ SCH ×2 (08:08→11:44)
[2019-03-01 09:07] LABS: Prothrombin Time 12.8 sec (11.9-14.5)
--- NOTE | 2019-03-01 09:26 | XRay Report ---
CLINICAL INFORMATION: Abdominal pain COMPARISON: None. FINDINGS: The stool gas pattern is unremarkable. There is no free air, soft tissue mass, or organomegaly. Multiple calcifications in the prostate again noted IMPRESSION: No acute disease. Multiple prostate calcifications Interpreted and Authenticated by: Mat Calle 03/01/19
--- NOTE | 2019-03-01 13:40 | Orthopedic Progress Note ---
Subjective Patient information: Note initiated : 03/01/19 at 1:37 pm Service Date, if different from initiated Date: [] Patient: Mat Lucio 58 y/o M admitted on 02/27/19 for fall from standing position left hip pain. Chief Complaint: [] Principal diagnosis: hip fracture Interval history: no issues Objective Vital signs: Vital Signs Temp Pulse Resp BP BP Pulse Ox 03/01/19 11:53 98.7 F 85 18 146/94 94 03/01/19 07:03 98.4 F 80 18 142/92 94 03/01/19 04:49 98.8 F 89 14 136/91 92 02/28/19 23:40 98.8 F 84 20 144/94 94 02/28/19 19:23 98.0 F 92 H 12 138/91 92 02/28/19 16:00 98.2 F 94 H 20 138/86 97 02/28/19 15:00 82 Intake and Output 02/28/19 03/01/19 03/01/19 21:59 05:59 13:59 Intake Total 1240 510 Output Total 300 Balance 1240 210 Intake: IV 1000 Sodium Chloride 0.9% 1,000 ml @ 1000 100 mls/hr IV .Q10H LANCE Rx#: [id number] Oral 240 510 Output: Void Amount 300 Other: Meal Breakfast Percent of Meal Consumed 75% Urine Color Light Glendy # Voids 1 Weight 257 lb 9.6 oz Intake & Output: Intake & Output 02/28/19 03/01/19 03/01/19 21:59 05:59 13:59 Intake Total 1240 510 Output Total 300 Balance 1240 210 Weight 257 lb 9.6 oz Intake: IV 1000 Sodium Chloride 0.9% 1,000 ml @ 1000 100 mls/hr IV .Q10H LANCE Rx#: [id number] Oral 240 510 Output: Void Amount 300 Other: Meal Breakfast Percent of Meal Consumed 75% Urine Color Light Glendy # Voids 1 Incision clean and dry: Yes Dressing: Yes clean, Yes dry, Yes intact Extremities exam IM: Yes normal inspection - Labs CBC & BMP: 03/01/19 06:27 02/28/19 06:13 Labs: Orthopedic Labs 03/01/19 02/28/19 02/27/19 06:27 06:13 08:47 PT 12.8 13.4 13.0 INR 1.0 1.0 1.0 03/01/19 02/28/19 02/27/19 06:27 06:13 02:00 Hgb 13.2 L 13.6 L 16.0 Hct 39.5 L 39.2 L 46.2 Assessment and Plan (1) Acute vestibular neuronitis status post hip fracture with hemiarthroplasty mobilize dc Status: Acute
== END 2019-03-01 14:20 | disposition home or self-care (01) | DRG 470 ==
LOC: ED 01:07 → MEDSUR 04:38
PROVIDERS: ADMIT Internal Medicine; ATTEND Internal Medicine